=== PATIENT | female | born 1975 | race Caucasian/White ===

== ENCOUNTER 2016-12-26 08:01 | Emergency (ER) | payer SELFPAY ==
[~2016-12-26] VITALS: Ht 165.1 cm; Wt 95.5 kg
[2016-12-26 08:10] VITALS: BP 126/78; PULSE 70; RESP 18; TEMP 97.9; O2SAT 99
--- NOTE | 2016-12-26 09:05 | PD ---
HPI Chief Complaint: Cold / Flu Symptoms Time Seen by Provider: 08:53 Travel History International Travel<30 days: No Contact w/Intl Traveler<30days: No Traveled to known affect area: No History of Present Illness HPI This 41-year-old female is complaining of sore throat for the past 3 days. She is not sure if she's had a fever. He has some pain with swallowing. She has no history of hypertension or diabetes. She had a slight cough. There's been no vomiting or diarrhea. She does not take any medications. PFSH Past Medical History Asthma: Yes (& allergies) Tetanus Vaccination: < 5 Years Influenza Vaccination: No ?: Not LMP: "Around " HX tubal Tubal Ligation: Yes Social History Alcohol Use: No Tobacco Use: No Substance Use: No Allergies-Medications (Allergen,Severity, Reaction): Coded Allergies: Morphine (Verified Allergy, Severe, Hives, "throat closes up", 12/26/16) Reported Meds & Prescriptions Reported Meds & Active Scripts Active No Active Prescriptions or Reported Medications Review of Systems General / Constitutional: No: Fever, Chills Eyes: No: Diploplia, Blurred Vision HENT: Positive: Sore Throat, No: Rhinitis Cardiovascular: No: Chest Pain or Discomfort, Palpitations Respiratory: Positive: Cough, No: Shortness of Breath Gastrointestinal: No: Vomiting, Diarrhea Genitourinary: No: Urgency, Frequency Musculoskeletal: No: Myalgias Skin: No Rash Neurologic: No: Dizziness, Syncope Physical Exam Narrative GENERAL: Well-developed female SKIN: Warm and dry. HEAD: Atraumatic. Normocephalic. EYES: Pupils equal and round. No scleral icterus. No injection or drainage. ENT: No nasal bleeding or discharge. Mucous membranes pink and moist. Posterior pharynx is erythematous NECK: Trachea midline. No JVD. There is bilateral anterior cervical adenopathy CARDIOVASCULAR: Regular rate and rhythm. No murmur appreciated. RESPIRATORY: No accessory muscle use. Clear to auscultation. Breath sounds equal bilaterally. GASTROINTESTINAL: Abdomen soft, non-tender, nondistended. Hepatic and splenic margins not palpable. MUSCULOSKELETAL: No obvious deformities. No clubbing. No cyanosis. No edema. NEUROLOGICAL: Awake and alert. No obvious cranial nerve deficits. Motor grossly within normal limits. Normal speech. PSYCHIATRIC: Appropriate mood and affect; insight and judgment normal. Data Data Last Documented VS Vital Signs Date Time Temp Pulse Resp B/P Pulse Ox O2 Delivery O2 Flow Rate FiO2 12/26/16 08:55 14 99 Room Air 12/26/16 08:10 97.9 70 126/78 Orders Group A Rapid Strep Screen (12/26/16 08:59) Strep Culture (Group A) (12/26/16 09:00) MDM Medical Decision Making Medical Screen Exam Complete: Yes Emergency Medical Condition: Yes Medical Record Reviewed: No Differential Diagnosis Differential includes strep throat, viral pharyngitis Narrative Course Test for strep is negative. Impression is viral pharyngitis Diagnosis Primary Impression: Acute viral pharyngitis Scripts No Active Prescriptions or Reported Meds Disposition: 01 DISCHARGE HOME Condition: Stable Tomás Dasilva MD Dec 26, 2016 09:04
== END 2016-12-26 09:45 | disposition home or self-care (01) ==
LOC: PHED 08:01
DX: J02.8 Acute pharyngitis due to other specified organisms (principal)
CPT/HCPCS: 87081; 87880; 99283